=== PATIENT | female | born 1995 | race Caucasian/White ===

== ENCOUNTER 2018-04-21 10:17 | Emergency (ER) | payer MEDICAID ==
[~2018-04-21] VITALS: Ht 162.6 cm; Wt 78.0 kg
[2018-04-21 10:23] VITALS: BP_SYST 155
--- NOTE | 2018-04-21 10:29 | NUR ---
Pt c/o generalized abdominal pain with nausea since this AM. Pt states pain feels "cramping."
--- NOTE | 2018-04-21 10:29 | NUR ---
Patient to ER bed 7 to gown for evaluation. Side rails up. Report given to Meet PERES.
--- NOTE | 2018-04-21 10:30 | NUR ---
Dr. Parker at bedside.
[2018-04-21 10:37] LABS: BILIRUBIN,URINE NEGATIVE (NEGATIVE); BLOOD, URINE NEGATIVE (NEGATIVE); COLOR,URINE YELLOW (YELLOW); GLUCOSE,URINE NEGATIVE (NEGATIVE); KETONES,URINE NEGATIVE (NEGATIVE); LEUKOCYTE ESTERASE ,URINE NEGATIVE (NEGATIVE); NITRITE, URINE NEGATIVE (NEGATIVE); PROTEIN URINE NEGATIVE (NEGATIVE); UROBILINOGEN,URINE 0.2 (0.2-1.0)
[2018-04-21 10:44] LABS: CLARITY/URINE SLIGHTLY HAZY (CLEAR)
[2018-04-21 11:50] VITALS: BP_SYST 146
--- NOTE | 2018-04-21 11:50 | NUR ---
Patient given written and verbal discharge instructions and verbalizes understanding. ER MD discussed with patient the results and treatment provided. Patient in stable condition. ID arm band removed. Rx of Senokot given. Patient educated on pain management and to follow up with PMD. Pain Scale 2/10 tolerable for patient. Opportunity for questions provided and answered. Medication side effect fact sheet provided.
== END 2018-04-21 11:50 | disposition home or self-care (01) ==
LOC: SED 10:17
DX: R10.9 Unspecified abdominal pain (principal); F41.9 Anxiety disorder, unspecified; R03.0 Elevated blood-pressure reading, without diagnosis of hypertension
CPT/HCPCS: 74018; 81003; 99285

== ENCOUNTER 2018-10-01 18:37 | Emergency (ER) | payer MEDICAID ==
[~2018-10-01] VITALS: Ht 162.6 cm; Wt 72.6 kg
[2018-10-01 18:50] VITALS: BP_SYST 149
--- NOTE | 2018-10-01 19:15 | NUR ---
Pt placed to ER bed 05. Pt states that she twisted her left ankle while running 2 days ago. No deformities noted, mild swelling to lateral left ankle. Pt able to dorsi-flex left foot, wiggle toes, cap refil < 3 sec. Pain with weight bearing.
--- NOTE | 2018-10-01 19:20 | NUR ---
Susie Mon, DIETITIAN CONSULTANT at bedside to assess pt.
[2018-10-01] MEDS ORDERED: ACETAMINOPHEN 500 MG TABLET PO ONE (20:00)
[2018-10-01 20:30] VITALS: BP_SYST 116
--- NOTE | 2018-10-01 20:30 | NUR ---
Patient given written and verbal discharge instructions and verbalizes understanding. ER MD discussed with patient the results and treatment provided. Patient in stable condition. ID arm band removed. Rx of Tylenol given. Patient educated on pain management and to follow up with PMD. Pain Scale 2/10. Opportunity for questions provided and answered. Medication side effect fact sheet provided.
== END 2018-10-01 20:30 | disposition home or self-care (01) ==
LOC: SED 18:37
DX: S93.492A Sprain of other ligament of left ankle, initial encounter (principal); S40.022A Contusion of left upper arm, initial encounter; R03.0 Elevated blood-pressure reading, without diagnosis of hypertension; F43.10 Post-traumatic stress disorder, unspecified; F41.9 Anxiety disorder, unspecified; W01.0XXA Fall on same level from slipping, tripping and stumbling without subsequent striking against object, initial encounter; Y93.89 Activity, other specified; Y92.89 Other specified places as the place of occurrence of the external cause; Y99.8 Other external cause status
CPT/HCPCS: 99283